=== PATIENT | female | born 1945 | race Caucasian/White ===

== ENCOUNTER 2017-11-11 15:57 | Inpatient (IN) | payer MEDICARE, BC ==
[~2017-11-11] VITALS: Ht 152.4 cm; Wt 42.7 kg
[~2017-11-11 15:57] MED LIST: DULCOLAX10 MG/SUPP RC; DURAGESIC1 PATCH .7 TD; HYDROCODONE-APA1 TAB PO; LISINOPRIL10 MG PO; LOVENOX40 MG/0.4 SQ; MIRALAX17 GM PO; NICODERM C1 PATCH .3 TD; NORVASC5 MG PO; PERCOCET 10/3251 TA1 PO; RESTORIL15 MG PO; SALINE FLUSH10 ML IV; SENOKOT-S TABLE1 TAB PO; SYNTHROID150 MCG PO
[2017-11-11] MEDS ORDERED: ARICEPT5 MG PO (17:15)
[2017-11-11] MEDS ORDERED: HYDROCODON-ACE1 EAC7 PO (17:17)
[2017-11-11] MEDS ORDERED: SYNTHROID125 MCG PO (17:26)
[2017-11-11] MEDS ORDERED: NAMENDA10 MG PO (17:27)
[2017-11-11] MEDS ORDERED: PRINIVIL20 MG PO (17:27)
[2017-11-11] MEDS ORDERED: OMEPRAZOLE20 M1 PO (17:28)
[2017-11-11] MEDS ORDERED: RESTORIL15 MG PO (17:29)
[2017-11-11 17:44] VITALS: BP 136/56
[2017-11-11 17:47] LABS: HEMATOCRIT 38.5 % (36.0-48.0); HEMOGLOBIN 12.7 g/dL (12-16); RBC 3.97 10x6/uL (4.00-5.40); RDW 12.9 % (11.5-14.5); WBC 6.7 10x3/uL (4.8-10.8)
[2017-11-11 17:48] LABS: PLATELET COUNT 138 10x3/uL (130-400)
[2017-11-11 18:00] LABS: ALBUMIN 3.4 g/dL (3.4-5.0); ANION GAP 17.2 mmol/L (8-16); BILIRUBIN - TOTAL 0.22 mg/dL (0.2-1.3); CARBON DIOXIDE 18.7 mmol/L (21.0-32.0); POTASSIUM - SERUM 4.9 mmol/L (3.5-5.1); PROTEIN - SERUM 6.3 g/dL (6.4-8.2)
[2017-11-11 19:24] LABS: EOSINOPHILS 4 % (0-7); LYMPHOCYTES 72 % (15-50); NEUTROPHILS 24 % (40-80); PLATELET ESTIMATE NORMAL
[2017-11-11 20:00] VITALS: BP 114/66
[2017-11-11 21:12] LABS: APPEARANCE CLEAR (CLEAR); BILIRUBIN NEGATIVE (NEGATIVE); COLOR YELLOW (YELLOW); GLUCOSE NEGATIVE (NEGATIVE); KETONE NEGATIVE (NEGATIVE); NITRITE NEGATIVE (NEGATIVE); PROTEIN NEGATIVE (NEGATIVE); SPECIFIC GRAVITY 1.015 (1.005-1.020); UROBILINOGEN NORMAL (NORMAL)
[2017-11-12] VITALS (7 sets, daily range): BP systolic 89–146; BP diastolic 39–70; Ht 152.4 cm; Wt 42.7 kg
[2017-11-12 06:52] LABS: BASOPHILS 0.4 % (0-2); EOSINOPHILS 0.8 % (0-7); HEMATOCRIT 36.1 % (36.0-48.0); IMMATURE GRANULOCYTES 0.2 % (0-5); LYMPHOCYTES 55.7 % (15-50); MCH 31.7 pg (26.0-34.0); MCHC 33.2 g/dL (31.0-37.0); MCV 95.5 fL (80.0-100.0); MEAN PLATELET VOLUME 9.5 fL (7.4-10.4); MONOCYTES 13.6 % (2-11); NEUTROPHILS 29.3 % (40-80); RBC 3.78 10x6/uL (4.00-5.40); RDW 12.7 % (11.5-14.5)
[2017-11-12 06:53] LABS: PLATELET COUNT 168 10x3/uL (130-400); WBC 4.9 10x3/uL (4.8-10.8)
[2017-11-12 07:11] LABS: ANION GAP 13.4 mmol/L (8-16); BILIRUBIN - TOTAL 0.3 mg/dL (0.2-1.3); CALCIUM 8.7 mg/dL (8.5-10.1); CARBON DIOXIDE 21.4 mmol/L (21.0-32.0)
[2017-11-12 07:12] LABS: POTASSIUM - SERUM 3.8 mmol/L (3.5-5.1)
[2017-11-12 10:01] LABS: INR 1.04 (0.85-1.17); PROTIME 13.2 SECONDS (11.6-15.0)
[2017-11-13 04:15] VITALS: BP 112/53
[2017-11-13 06:46] LABS: BASOPHILS 0.4 % (0-2); EOSINOPHILS 0.9 % (0-7); HEMATOCRIT 36.6 % (36.0-48.0); HEMOGLOBIN 12.3 g/dL (12-16); LYMPHOCYTES 51.9 % (15-50); MCH 32.1 pg (26.0-34.0); MCHC 33.6 g/dL (31.0-37.0); MCV 95.6 fL (80.0-100.0); MEAN PLATELET VOLUME 9.8 fL (7.4-10.4); MONOCYTES 14.2 % (2-11); NEUTROPHILS 32.6 % (40-80); PLATELET COUNT 197 10x3/uL (130-400); RBC 3.83 10x6/uL (4.00-5.40); RDW 12.7 % (11.5-14.5); WBC 5.4 10x3/uL (4.8-10.8)
[2017-11-13 07:16] LABS: ANION GAP 13.8 mmol/L (8-16); BILIRUBIN - TOTAL 0.3 mg/dL (0.2-1.3); CALCIUM 9.1 mg/dL (8.5-10.1); CARBON DIOXIDE 21.2 mmol/L (21.0-32.0); CREATININE - SERUM 1.1 mg/dL (0.6-1.3); PROTEIN - SERUM 6.1 g/dL (6.4-8.2)
[2017-11-13 08:38] VITALS: BP 111/45
[2017-11-13 12:09] VITALS: BP 98/43
[2017-11-13 16:20] VITALS: BP 93/51
[2017-11-13 20:00] VITALS: BP 163/61
[2017-11-13 23:52] VITALS: BP 126/71
[2017-11-14 03:49] VITALS: BP 144/65
[2017-11-14 07:43] LABS: BASOPHILS 0.4 % (0-2); EOSINOPHILS 1.1 % (0-7); HEMATOCRIT 36.4 % (36.0-48.0); HEMOGLOBIN 12.3 g/dL (12-16); IMMATURE GRANULOCYTES 0.2 % (0-5); LYMPHOCYTES 49.8 % (15-50); MCH 32.1 pg (26.0-34.0); MCHC 33.8 g/dL (31.0-37.0); MEAN PLATELET VOLUME 9.5 fL (7.4-10.4); NEUTROPHILS 36.5 % (40-80); PLATELET COUNT 166 10x3/uL (130-400); RBC 3.83 10x6/uL (4.00-5.40); RDW 12.7 % (11.5-14.5); WBC 4.7 10x3/uL (4.8-10.8)
[2017-11-14 07:57] LABS: ANION GAP 13.3 mmol/L (8-16); BILIRUBIN - TOTAL 0.3 mg/dL (0.2-1.3); CALCIUM 8.8 mg/dL (8.5-10.1); CARBON DIOXIDE 21.7 mmol/L (21.0-32.0); CREATININE - SERUM 0.9 mg/dL (0.6-1.3); PROTEIN - SERUM 6.1 g/dL (6.4-8.2)
[2017-11-14 09:26] VITALS: BP 90/33
[2017-11-14 15:51] VITALS: BP 90/41
[2017-11-14 20:00] VITALS: BP 80/56
[2017-11-15] VITALS: BP 81/32
[2017-11-15 06:29] VITALS: BP 91/45
[2017-11-15 08:27] VITALS: BP 78/51
[2017-11-15 11:41] VITALS: BP 100/55
[2017-11-15 15:39] VITALS: BP 78/48
[2017-11-15 20:00] VITALS: BP 105/57
[2017-11-16] VITALS: BP 96/49
[2017-11-16 04:00] VITALS: BP 105/45
[2017-11-16 09:26] VITALS: BP 112/63
[2017-11-16 13:11] VITALS: BP 116/68
[2017-11-16 16:54] VITALS: BP 124/72
[2017-11-16 20:00] VITALS: BP 92/46
[2017-11-17 04:00] VITALS: BP 98/60
[2017-11-17 09:36] VITALS: BP 125/63
[2017-11-17 12:49] VITALS: BP 98/51
== END 2017-11-17 15:54 | DRG 690 ==
LOC: D.MS 15:57
PROVIDERS: General Practice; Legal Medicine
DX: N12 Tubulo-interstitial nephritis, not specified as acute or chronic (principal); F05 Delirium due to known physiological condition; J44.9 Chronic obstructive pulmonary disease, unspecified; F03.90 Unspecified dementia, unspecified severity, without behavioral disturbance, psychotic disturbance, mood disturbance, and anxiety; F17.200 Nicotine dependence, unspecified, uncomplicated; M48.56XD Collapsed vertebra, not elsewhere classified, lumbar region, subsequent encounter for fracture with routine healing

== ENCOUNTER 2018-06-11 16:54 | Inpatient (IN) | payer MEDICARE, BC ==
[~2018-06-11] VITALS: Ht 147.3 cm; Wt 44.3 kg
--- NOTE | ~2018-06-11 | PN ---
PATIENT:DEBBIE GARCIA MEDICAL RECORD: [id number] LOCATION:[facility] ADMISSION DATE: 06/11/18 PROGRESS NOTE DATE OF SERVICE: 06/14/2018 SUBJECTIVE: The patient's case was discussed with staff. She has no new complaint. OBJECTIVE: The patient is in good behavioral control with limited insight about her condition. She does tolerate her medicines well. She is not sleeping very well. She is extremely confused. ASSESSMENT: No change in diagnoses. PLAN: The patient will be given 50 mg of trazodone at bedtime to assist with sleep consolidation. In addition to this, I am going to leave her Restoril at its current dose, which I have reduced since admission. I do plan to discontinue that medication in fairly short order. TRANSINT:[id number] Voice Confirmation ID: [id number] DOCUMENT ID: [id number] WINSTON BENITEZ MD at 1323 CC: [id number] DICTATION DATE: 06/14/18 1404 BACK ORDER CLERK: 06/14/18 1420 ADM IN [place] [id number] [place] [address]
--- NOTE | ~2018-06-11 | PN ---
PATIENT:DEBBIE GARCIA MEDICAL RECORD: [id number] LOCATION:[facility] ADMISSION DATE: 06/11/18 PROGRESS NOTE DATE OF SERVICE: 06/16/2018 SUBJECTIVE: The patient's case was discussed with staff. She has no new complaint. OBJECTIVE: The patient denies intent to harm herself or others. She does tolerate her medicines well. ASSESSMENT: No change in diagnoses. PLAN: The patient is receiving Megace, but still is not eating well. Her dementia is advanced and loss of appetite and weight loss is a common problem in advanced dementias and I am not sure if the Megace is going to be effective. I do not think we have gotten to the point of considering a feeding tube, which I would rehabilitation services counselor her and the family against, but we may be approaching the need for hospice or palliative care consultation, particularly if we cannot improve her nutrition. TRANSINT:[id number] Voice Confirmation ID: [id number] DOCUMENT ID: [id number] WINSTON BENITEZ MD at 1354 CC: [id number] DICTATION DATE: 06/16/181715 CARRY OUT CLERK: 06/16/18 1726 ADM IN [facility] [address] [place] [address]
--- NOTE | ~2018-06-11 | PN ---
PATIENT:DEBBIE GARCIA MEDICAL RECORD: [id number] LOCATION:[facility] ADMISSION DATE: 06/11/18 PROGRESS NOTE DATE OF SERVICE: 06/24/2018 SUBJECTIVE: The patient's case was discussed with staff. She has no new complaint. OBJECTIVE: The patient denies intent to harm herself or others. She generally tolerates her medicines well. ASSESSMENT: No change in diagnoses. PLAN: Brief supportive and educational interventions were made. Long-term prognosis is guarded. I anticipate she can be transitioned out of the hospital soon if this level of improvement is maintained. TRANSINT:[id number] Voice Confirmation ID: [id number] DOCUMENT ID: [id number] WINSTON BENITEZ MD at 0754 CC: [id number] DICTATION DATE: 06/24/18 1318 RELOCATION DIRECTOR: 06/24/18 1329 ADM IN [place] [id number] [place] [id number]
--- NOTE | ~2018-06-11 | PN ---
PATIENT:DEBBIE GARCIA MEDICAL RECORD: [id number] LOCATION:[facility] ADMISSION DATE: 06/11/18 PROGRESS NOTE DATE OF SERVICE: 06/22/2018 SUBJECTIVE: The patient's case was discussed with staff. She has no new complaint. OBJECTIVE: The patient denies intent to harm herself or others. Generally tolerates her medicines well. ASSESSMENT: No change in diagnoses. PLAN: Current medicines have been reviewed. I am going to increase the dose of her Namenda to 5 mg twice daily. Her long-term prognosis is guarded. TRANSINT:[id number] Voice Confirmation ID: [id number] DOCUMENT ID: [id number] WINSTON BENITEZ MD at 1118 CC: [id number] DICTATION DATE: 06/22/18 1450 ROLLER PAINTER: 06/22/18 1514 ADM IN [place] [id number] [place] [address]
--- NOTE | ~2018-06-11 | PN ---
PATIENT:DEBBIE GARCIA MEDICAL RECORD: [id number] LOCATION:[facility] ADMISSION DATE: 06/11/18 PROGRESS NOTE DATE OF SERVICE: 06/21/2018 SUBJECTIVE: The patient's case was discussed with staff. She has no new complaint. OBJECTIVE: The patient is in good behavioral control with limited insight about her condition. She does tolerate her medicines well. She was tested by Dr. Marsha Burnett and scored in the severe range, indicating the need for 38-mmzl-k-day supervision. This is consistent with my bedside finding. She slept 10-1/2 hours last night. ASSESSMENT: No change in diagnoses. PLAN: The patient's Restoril will be discontinued. I see no strong clinical indication for it and I have tapered it down since she was admitted. Her long-term prognosis is guarded and I anticipate she can be transitioned out of the hospital and back to [facility] soon if this level of improvement is maintained. TRANSINT:[id number] Voice Confirmation ID: [id number] DOCUMENT ID: [id number] WINSTON BENITEZ MD at 1427 CC: [id number] DICTATION DATE: 06/21/18 1351 SEARCH ANALYST: 06/21/18 1358 ADM IN [place] [address] [place] [address]
--- NOTE | ~2018-06-11 | PN ---
PATIENT:DEBBIE GARCIA MEDICAL RECORD: [id number] LOCATION:[facility] ADMISSION DATE: 06/11/18 PROGRESS NOTE DATE OF SERVICE: 06/18/2018 SUBJECTIVE: No new complaint. OBJECTIVE: The patient is maintaining stable status. She is tolerating medications well. We are awaiting assessment by [facility]. Tentative plans are for transition to [facility] in [place]. On exam, mood is euthymic. Affect is bland. Speech is rather terse. Content of thought is negative for overt psychosis. Sensorium unchanged. ASSESSMENT: No change in diagnosis. PLAN: 1. Continue current medication. 2. Continue supportive therapy. TRANSINT:[id number] Voice Confirmation ID: [id number] DOCUMENT ID: [id number] AJ VARNER III, MD at 0711 CC: [id number] DICTATION DATE: 06/18/18 1109 RECYCLER: 06/18/18 1130 ADM IN [place] [id number] [place] [address]
--- NOTE | ~2018-06-11 | PSY ---
PATIENT NAME:DEBBIE GARCIA MEDICAL RECORD: [id number] : 45 LOCATION:TAN [facility]er3 ADMISSION DATE: 06/11/18 ACCOUNT: [id number] PSYCHIATRIC EVALUATION DATE OF EVALUATION: 06/12/18 IDENTIFYING DATA: The patient is 73 years old and she was admitted to the hospital on a voluntary basis. CHIEF COMPLAINT: None. HISTORY OF PRESENT ILLNESS: The patient is a very nice elderly woman who unfortunately is quite confused. She apparently has been living alone, but not doing very well. She has been wandering out of her house. She has been found on the street more than once and has locked herself out of the house. She is disoriented and when neighbors or an acquaintance were trying to help her, she became quite agitated. It was then that they brought her to the Emergency Room. The patient again is not able to provide significant history, but there are some records that indicate that she has a history of a stroke and she suffers from hypothyroidism, hypertension, COPD and osteoarthritis. PAST PSYCHIATRIC HISTORY: Significant for a history of stroke along with some depression and anxiety. FAMILY HISTORY: Unknown. ALLERGIES: PLAVIX AND ROBAXIN. MEDICATIONS: Current medications include Norvasc, Restoril, Aricept, Logan, Synthroid, Prinivil, and Namenda. SOCIAL HISTORY: The patient is . She does have adult children who are involved with her care, but I am not sure to what extent. Attempts to contact her daughter failed so far. The patient denies a history of drug or alcohol abuse. MENTAL STATUS EXAMINATION: The patient is awake, alert and oriented to person, place and somewhat to time and situation. Her mood is flat. Her affect is constricted. Thought processes are circumstantial. Memory, concentration, and abstraction abilities are moderately impaired. She denies any active intent to harm herself or others as well as overt psychotic symptoms. ASSETS: Supportive family members. LIABILITIES: Limited insight. DIAGNOSTIC IMPRESSION: AXIS I: Senile dementia of the Alzheimer's type with behavioral disturbances. AXIS II: None. AXIS III: Hypothyroidism, hypertension, chronic obstructive pulmonary disease. AXIS IV: Moderate stressors. AXIS V: Global assessment of functioning is 30. PLAN: At this time, the patient is admitted to the hospital for a comprehensive medical, psychological, and social evaluation. She will be treated with both mood stabilizing and memory enhancing medications. Her long-term prognosis is guarded. TRANSINT:[id number] Voice Confirmation ID: [id number] DOCUMENT ID: [id number] WINSTON BENITEZ MD at 1034 CC: [id number] DICTATION DATE: 06/12/18 1413 HOMICIDE SQUAD LIEUTENANT: 06/12/18 1441 ADM IN [place] [id number] [place] [address]
--- NOTE | ~2018-06-11 | PN ---
PATIENT:DEBBIE GARCIA MEDICAL RECORD: [id number] LOCATION:T[facility] ADMISSION DATE: 06/11/18 PROGRESS NOTE DATE OF SERVICE: 06/13/2018 SUBJECTIVE: The patient's case was discussed with staff. She has no new complaint. OBJECTIVE: The patient is in good behavioral control with limited insight about her condition. She generally tolerates her medicines well. ASSESSMENT: No change in diagnoses. PLAN: Current medicines and therapies have been reviewed and will be maintained. Her long-term prognosis is guarded. TRANSINT:[id number] Voice Confirmation ID: [id number] DOCUMENT ID: [id number] WINSTON BENITEZ MD at 1354 CC: [id number] DICTATION DATE: 06/13/18 1100 [employer] SALESPERSON: 06/13/18 1305 ADM IN [place] [address] [place] [address]
--- NOTE | ~2018-06-11 | PN ---
PATIENT:DEBBIE GARCIA MEDICAL RECORD: [id number] LOCATION:T[facility] ADMISSION DATE: 06/11/18 PROGRESS NOTE DATE OF SERVICE: 06/17/2018 SUBJECTIVE: The patient's case was discussed with staff. She has no new complaint. OBJECTIVE: The patient is in good behavioral control with limited insight about her condition. She is sleeping a little better. I have not finished tapering her Restoril. ASSESSMENT: No change in diagnoses. PLAN: The patient is going to have her trazodone increased slightly and in a day or two, I will make the final discontinuation of her Restoril. She is certainly in need of 39-xsbi-x-day supervision. It is not clear what setting will be the least restrictive. TRANSINT:[id number] Voice Confirmation ID: [id number] DOCUMENT ID: [id number] WINSTON BENITEZ MD at 1344 CC: [id number] DICTATION DATE: 06/17/18 1404 INDUSTRIAL GAS SERVICER: 06/17/18 1507 ADM IN [place] [id number] [place] [address]
--- NOTE | ~2018-06-11 | DS ---
PATIENT:DEBBIE GARCIA :45 MEDICAL RECORD: [id number] DISCHARGE SUMMARY ADMISSION DATE: 06/11/18 DISCHARGE DATE: 06/25/18 IDENTIFYING DATA: The patient is 73 years old and she was admitted to the hospital on a voluntary basis. The patient is a very nice elderly woman who is unfortunately quite confused. She had been living alone and not managing very well. She has been wandering away from her house and had been found in the street more than once, having locked herself out of the house. She was disoriented and when neighbors attempted to assist her, she would become quite agitated. They brought her to the Emergency Room. HOSPITAL COURSE: The patient was admitted to the hospital and fully evaluated from both a medical, psychological, and social standpoint. She was found to be severely impaired cognitively. She was tolerating her medications reasonably well and was treated with both mood stabilizing and memory enhancing medications. She did show improvement through the course of the hospitalization and arrangements were made for her to receive 24-hour a day care. DISCHARGE DIAGNOSES: AXIS I: Senile dementia of the Alzheimer's type with behavioral disturbances. AXIS II: None. AXIS III: Hypothyroidism, hypertension, chronic obstructive pulmonary disease. AXIS IV: Moderate stressors. AXIS V: Global assessment of functioning 35. PLAN: At the time of discharge, the patient was in good behavioral control with no acute symptoms that would represent a risk to herself or others. She was extremely impaired cognitively and her long-term prognosis is not very good. She will have follow up with her primary care physician. TRANSINT:[id number] Voice Confirmation ID: [id number] DOCUMENT ID: [id number] WINSTON BENITEZ MD at 1508 CC: [id number] DICTATION DATE: 06/28/18 1433 PLACEMENT INTERVIEWER: 06/29/18 0647 DIS IN 06/25/18 [place] [id number] [place] [address]
--- NOTE | ~2018-06-11 | PN ---
PATIENT:DEBBIE GARCAI MEDICAL RECORD: [id number] LOCATION:TAN [facility] ADMISSION DATE: 06/11/18 PROGRESS NOTE DATE OF SERVICE: 06/23/2018 SUBJECTIVE: The patient's case was discussed with staff. She has no new complaint. OBJECTIVE: The patient is in good behavioral control with limited insight about her condition. She tolerates her medicines well. ASSESSMENT: No change in diagnoses. PLAN: Supportive and educational interventions were made. The patient has been accepted by [facility] and I would estimate that if this level of improvement is maintained, then she can reasonably be transitioned out of the hospital soon, perhaps after the weekend. TRANSINT:[id number] Voice Confirmation ID: [id number] DOCUMENT ID: [id number] WINSTON BENITEZ MD at 1303 CC: [id number] DICTATION DATE: 06/23/18 1128 GAMMA OPERATOR: 06/23/18 1139 ADM IN [place] [id number] [place] [address]
--- NOTE | ~2018-06-11 | PN ---
PATIENT:DEBBIE GARCIA MEDICAL RECORD: [id number] LOCATION:TAN [facility]112 ADMISSION DATE: 06/11/18 PROGRESS NOTE DATE OF SERVICE: 06/15/2018 SUBJECTIVE: The patient's case was discussed with staff. She has no new complaint. OBJECTIVE: The patient is in good behavioral control, but is wandering a great deal and not sleeping or eating well. ASSESSMENT: No change in diagnoses. PLAN: The patient will be started on Trilafon for her thought disorganization. I am also going to start her on Megace for appetite stimulation. Her long-term prognosis is guarded and her condition is advanced. TRANSINT:[id number] Voice Confirmation ID: [id number] DOCUMENT ID: [id number] WINSTON BENITEZ MD at 1659 CC: [id number] DICTATION DATE: 06/15/18 1428 CAT DRIVER: 06/15/18 [address] [facility] [address] [place] [id number]
[~2018-06-11 16:54] MED LIST changes: +ARICEPT5 MG PO; +HYDROCODON-ACE1 EAC7 PO; +NAMENDA10 MG PO; +OMEPRAZOLE20 M1 PO; +PRINIVIL20 MG PO; +SYNTHROID125 MCG PO
[2018-06-11 17:31] LABS: BASOPHILS 0.8 % (0-2); EOSINOPHILS 2.3 % (0-7); HEMATOCRIT 38.7 % (36.0-48.0); IMMATURE GRANULOCYTES 0.4 % (0-5); LYMPHOCYTES 42.7 % (15-50); MCH 31.9 pg (26.0-34.0); MCHC 33.6 g/dL (31.0-37.0); MCV 95.1 fL (80.0-100.0); MEAN PLATELET VOLUME 9.5 fL (7.4-10.4); MONOCYTES 12.8 % (2-11); PLATELET COUNT 169 10x3/uL (130-400); RBC 4.07 10x6/uL (4.00-5.40); RDW 13.1 % (11.5-14.5); WBC 5.3 10x3/uL (4.8-10.8)
[2018-06-11 17:47] LABS: ALBUMIN 3.3 g/dL (3.4-5.0); ANION GAP 11.5 mmol/L (8-16); BILIRUBIN - TOTAL 0.2 mg/dL (0.2-1.3); CALCIUM 8.9 mg/dL (8.5-10.1); CARBON DIOXIDE 27.6 mmol/L (21.0-32.0); CREATININE - SERUM 1.2 mg/dL (0.6-1.3); POTASSIUM - SERUM 4.1 mmol/L (3.5-5.1); PROTEIN - SERUM 7.2 g/dL (6.4-8.2)
[2018-06-11 17:58] LABS: ACETAMINOPHEN 2.3 ug/mL (10.0-30.0); THYROID STIMULATING HORMONE 0.02 uIU/mL (0.36-3.74)
[2018-06-11 19:32] LABS: CHOL - HDL RATIO 5.9 ratio (2.3-4.1); LDL-HDL RATIO 3.6 ratio (1.5-3.5)
[2018-06-11 19:39] VITALS: BP 113/64
[2018-06-12 00:23] VITALS: BP 113/64; BMI 20.5
[2018-06-12 09:19] VITALS: BMI 20.4
[2018-06-12 09:56] VITALS: BP 103/63
[2018-06-12 15:16] LABS: APPEARANCE CLEAR (CLEAR); BILIRUBIN NEGATIVE (NEGATIVE); COLOR YELLOW (YELLOW); GLUCOSE NEGATIVE (NEGATIVE); KETONE NEGATIVE (NEGATIVE); NITRITE NEGATIVE (NEGATIVE); PROTEIN 1+ mg/dL (NEGATIVE); SPECIFIC GRAVITY 1.015 (1.005-1.020); UROBILINOGEN NORMAL (NORMAL)
[2018-06-12 15:28] LABS: AMORPHOUS SEDIMENT <1+ /lpf (NONE SEEN); BACTERIA FEW /hpf (NONE SEEN); EPITHELIAL CELLS RARE /hpf (0-5); RED CELLS - URINE 0-5 /hpf (0-5); WHITE CELLS - URINE OCC /hpf (0-5)
[2018-06-12 20:00] VITALS: BP 129/63
[2018-06-13 10:13] VITALS: BP 106/76
[2018-06-13 20:41] VITALS: BP 137/106
[2018-06-14 08:00] VITALS: BP 85/52
[2018-06-14 21:06] VITALS: BP 80/46
[2018-06-15 08:00] VITALS: Ht 147.3 cm; Wt 44.3 kg
[2018-06-15 08:12] VITALS: BP 101/80
[2018-06-15 20:41] VITALS: BP 107/62
[2018-06-16 20:08] VITALS: BP 139/73
[2018-06-17 09:06] VITALS: BP 121/66
[2018-06-17 19:27] VITALS: BP 123/59
[2018-06-18 07:35] VITALS: BP 132/77
[2018-06-18 19:53] VITALS: BP 136/70
[2018-06-19 09:08] VITALS: BP 112/55
[2018-06-19 20:31] VITALS: BP 130/70
[2018-06-20 07:00] VITALS: BP 119/71
[2018-06-20 20:00] VITALS: BP 124/41
[2018-06-21 07:00] VITALS: BP 132/64
[2018-06-21 19:56] VITALS: BP 151/59
[2018-06-22 08:00] VITALS: BP 136/73
[2018-06-22 20:06] VITALS: BP 107/50
[2018-06-23 08:09] VITALS: BP 129/65
[2018-06-23 19:26] VITALS: BP 140/71
[2018-06-24 07:36] VITALS: BP 149/74
[2018-06-24] MEDS ORDERED: ARICEPT5 MG PO (13:19)
[2018-06-24] MEDS ORDERED: MEGACE40 MG PO (13:19)
[2018-06-24] MEDS ORDERED: NAMENDA5 MG PO (13:20)
[2018-06-24] MEDS ORDERED: TRAZODONE HCL50 MG PO (13:20)
[2018-06-24] MEDS ORDERED: NORCO-5 PO (13:20)
[2018-06-24] MEDS ORDERED: PERPHENAZINE2 MG PO (13:20)
[2018-06-24] MEDS ORDERED: COLACE100 MG PO (13:21)
[2018-06-24] MEDS ORDERED: VITAMIN D5000 UNIT PO (13:21)
[2018-06-24 19:45] VITALS: BP 106/67
[2018-06-25 08:05] VITALS: BP 146/65
== END 2018-06-25 10:52 | DRG 57 ==
LOC: D.ER 16:54 → D.PSYCH 18:23
PROVIDERS: Emergency Medicine; Psychiatry & Neurology Psychiatry
DX: G30.1 Alzheimer's disease with late onset (principal); F02.81 Dementia in other diseases classified elsewhere, unspecified severity, with behavioral disturbance; E03.9 Hypothyroidism, unspecified; I10 Essential (primary) hypertension; J44.9 Chronic obstructive pulmonary disease, unspecified; F41.8 Other specified anxiety disorders; G47.00 Insomnia, unspecified; E55.9 Vitamin D deficiency, unspecified; R63.0 Anorexia; Z68.20 Body mass index [BMI] 20.0-20.9, adult